=== PATIENT | female | born 1950 | race Hispanic/Latino ===

== ENCOUNTER 2018-08-18 23:36 | Observation (INO) | payer OTHER, MEDICARE ==
[~2018-08-18] VITALS: Ht 152.4 cm; Wt 77.8 kg
[2018-08-19 00:18] LABS: INR 1.1 (0.85-1.15); PARTIAL THROMBOPLASTIN TIME 25.4 SEC (26.3-35.5); PROTHROMBIN TIME 11.5 SEC (9.6-11.6)
[2018-08-19 00:19] LABS: CREATININE 1.2 mg/dL (0.5-1.5); POTASSIUM 4.2 mmol/L (3.5-5.1)
[2018-08-19 00:22] LABS: BASOPHILS % (AUTO) 3.2 % (0.0-5.0); EOSINOPHILS % (AUTO) 5.8 % (0.0-8.0); HEMATOCRIT 34.1 % (36-48); LYMPHOCYTES % (AUTO) 31.3 % (21.0-51.0); MEAN CORPUSCULAR HEMOGLOBIN 30.6 pg (27.0-33.0); MEAN CORPUSCULAR HGB CONC 34.3 g/dL (32.0-36.0); MEAN CORPUSCULAR VOLUME 89.2 fL (79-99); MONOCYTES % (AUTO) 9.6 % (3.0-13.0); NEUTROPHILS % (AUTO) 50.1 % (40.0-77.0); NUCLEATED RED BLOOD CELLS 0.1 % (0.0-0.19); PLATELET COUNT (AUTO) 164 K/uL (130-400); RED BLOOD CELL COUNT(AUTO) 3.82 MIL/uL (4.00-5.50); WHITE BLOOD COUNT (AUTO) 8.8 K/uL (4.8-10.8)
[2018-08-19 00:23] LABS: BILIRUBIN,TOTAL 0.3 mg/dL (0.2-1.0); MAGNESIUM 1.9 mg/dL (1.80-2.40); TOTAL PROTEIN, SERUM 9.1 g/dL (6.0-8.3)
[2018-08-19] MEDS ORDERED: MORPHINE SULFATE 4 MG/1ML SYG IVP PRN (03:30)
[2018-08-19] MEDS ORDERED: NITROGLYCERIN 0.4 MG SL TAB SL PRN (03:30)
[2018-08-19] MEDS ORDERED: ONDANSETRON HCL 4 MG/2 ML VIAL IVP PRN (03:30)
[2018-08-19 05:19] LABS: BASOPHILS % (AUTO) 3.7 % (0.0-5.0); EOSINOPHILS % (AUTO) 8.5 % (0.0-8.0); HEMATOCRIT 33.9 % (36-48); LYMPHOCYTES % (AUTO) 33.3 % (21.0-51.0); MEAN CORPUSCULAR HEMOGLOBIN 30.8 pg (27.0-33.0); MEAN CORPUSCULAR HGB CONC 34.3 g/dL (32.0-36.0); MEAN CORPUSCULAR VOLUME 89.9 fL (79-99); MONOCYTES % (AUTO) 9.7 % (3.0-13.0); NEUTROPHILS % (AUTO) 44.8 % (40.0-77.0); NUCLEATED RED BLOOD CELLS 0.1 % (0.0-0.19); PLATELET COUNT (AUTO) 175 K/uL (130-400); RED BLOOD CELL COUNT(AUTO) 3.77 MIL/uL (4.00-5.50); RED CELL DISTRIBUTION WIDTH 14.1 % (11.0-15.5); WHITE BLOOD COUNT (AUTO) 8.1 K/uL (4.8-10.8)
[2018-08-19 05:33] LABS: ALBUMIN 2.8 g/dL (3.5-5.0); BILIRUBIN,TOTAL 0.4 mg/dL (0.2-1.0); TOTAL PROTEIN, SERUM 8.5 g/dL (6.0-8.3)
[2018-08-19] MEDS ORDERED: POTASSIUM CHLORIDE 10% ELIXIR 20 MEQ/15 ML UDCUP PO PRN (06:45)
[2018-08-19] MEDS ORDERED: LIDOCAINE HCL-MPF 1% 2ML VIAL IJ PRN (06:45)
[2018-08-19] MEDS ORDERED: POTASSIUM CHLORIDE 20MEQ/100ML 100 ML IV PRN (06:45)
[2018-08-19] MEDS ORDERED: POTASSIUM CHLORIDE 20 MEQ ERTAB PO PRN (06:45)
[2018-08-19 06:50] LABS: POTASSIUM 3.2 mmol/L (3.5-5.1)
[2018-08-19] MEDS ORDERED: POTASSIUM CHLORIDE 20 MEQ ERTAB PO ONE (06:57)
[2018-08-19] MEDS: PREDNISONE 20 MG TABLET PO SCH (08:00)
[2018-08-19] MEDS ORDERED: PREDNISONE 20 MG TABLET ONE (10:16)
[2018-08-19] MEDS ORDERED: GLIM4TAB3 PO (11:59)
[2018-08-19] MEDS ORDERED: ATOR40TA69 PO (11:59)
[2018-08-19] MEDS ORDERED: LISI1TAB11 PO (11:59)
[2018-08-19 12:27] LABS: CREATINE KINASE, TOTAL 77 U/L (21-232); MYOGLOBIN 36 ng/mL (10-92); TROPONIN I < 0.04 ng/mL (0.00-0.06)
[2018-08-19 16:00] VITALS: BP 139/78
[2018-08-19 19:00] VITALS: BP 145/53
[2018-08-19 20:42] LABS: MAGNESIUM 1.9 mg/dL (1.80-2.40); POTASSIUM 4.2 mmol/L (3.5-5.1)
[2018-08-19] MEDS: FAMVIR 500 MG PO SCH (21:00)
[2018-08-19] MEDS: FAMOTIDINE 20MG TAB 20 MG TAB PO SCH (21:27)
[2018-08-19] MEDS: ATORVASTATIN CALCIUM 40 MG TABLET PO SCH (21:27)
[2018-08-19] MEDS: ACYCLOVIR 200 MG CAPSULE PO SCH (21:28)
[2018-08-20] VITALS: BP 142/72
[2018-08-20 04:00] VITALS: BP 124/69
[2018-08-20 07:00] VITALS: BP 133/70
[2018-08-20] MEDS: PREDNISONE 20 MG TABLET PO SCH (08:00)
[2018-08-20] MEDS: FAMVIR 500 MG PO SCH ×3 (09:00→20:22)
[2018-08-20] MEDS: LISINOPRIL 20 MG TABLET PO SCH (09:00)
[2018-08-20] MEDS: FAMOTIDINE 20MG TAB 20 MG TAB PO SCH ×2 (09:00→21:36)
[2018-08-20] MEDS: HYDROCHLOROTHIAZIDE 25 MG TABLET PO SCH (09:00)
[2018-08-20] MEDS: ACYCLOVIR 200 MG CAPSULE PO SCH ×3 (09:00→21:36)
[2018-08-20] MEDS ORDERED: REGADENOSON 0.4 MG/5 ML PF SYG IVP SCH (10:30)
[2018-08-20 10:47] LABS: CREATINE KINASE, TOTAL 35 U/L (21-232); TROPONIN I < 0.04 ng/mL (0.00-0.06)
[2018-08-20 11:00] VITALS: BP 127/65
[2018-08-20 11:04] LABS: MYOGLOBIN 46 ng/mL (10-92)
[2018-08-20 17:00] VITALS: BP 144/66
[2018-08-20 19:00] VITALS: BP 121/63
[2018-08-20] MEDS: ATORVASTATIN CALCIUM 40 MG TABLET PO SCH (21:36)
[2018-08-21] VITALS: BP 127/66
[2018-08-21 03:59] VITALS: BP 138/64
[2018-08-21 08:00] VITALS: BP 144/67
[2018-08-21] MEDS: PREDNISONE 20 MG TABLET PO SCH (08:34)
[2018-08-21] MEDS: FAMOTIDINE 20MG TAB 20 MG TAB PO SCH (08:34)
[2018-08-21] MEDS ORDERED: ASPI-1197 PO (08:35)
[2018-08-21] MEDS: HYDROCHLOROTHIAZIDE 25 MG TABLET PO SCH (08:35)
[2018-08-21] MEDS: ACYCLOVIR 200 MG CAPSULE PO SCH (08:35)
[2018-08-21] MEDS ORDERED: METO-408 PO (08:35)
[2018-08-21] MEDS: FAMVIR 500 MG PO SCH (08:35)
[2018-08-21] MEDS: LISINOPRIL 20 MG TABLET PO SCH (08:35)
[2018-08-21] MEDS ORDERED: NITR0.4T SL (08:35)
== END 2018-08-21 11:26 | disposition home or self-care (01) ==
LOC: EDH 23:36 → EDHIP 08-19 02:35 → INTOOBSV 08-19 02:35 → 3AH 08-19 16:03
PROVIDERS: ADMIT Hospitalist; ATTEND Hospitalist
DX: G51.0 Bell's palsy (principal); R07.89 Other chest pain; I12.9 Hypertensive chronic kidney disease with stage 1 through stage 4 chronic kidney disease, or unspecified chronic kidney disease; N18.3 Chronic kidney disease, stage 3 (moderate); I51.7 Cardiomegaly; Z79.899 Other long term (current) drug therapy; Z98.51 Tubal ligation status; Z87.891 Personal history of nicotine dependence; Z90.710 Acquired absence of both cervix and uterus
CPT/HCPCS: 36415 ×3; 70450; 71045; 76705; 78452; 80053; 82550 ×2; 83690 ×2; 83735 ×2; 83874 ×2; 84484 ×4; 85025 ×2; 85610; 85730; 93005; 93017; 93306; 99285; A4510; A9500 ×2; G0378 ×57; J2785; 80048; 96374